=== PATIENT | female | born 1985 | race Caucasian/White ===

== ENCOUNTER 2016-10-17 19:14 | Emergency (ER) | payer OTHER ==
[2016-10-17 19:36] VITALS: BP 125/96; PULSE 80; TEMP 98.8; O2SAT 100
--- NOTE | 2016-10-17 20:11 | UCPHY ---
H & P Time Seen by Provider: 10/17/16 20:04 Patient Type: New HPI/ROS: This patient has cat bite to the left anterior arm and scratches to her left lateral torso. The his injuries were from her own cat who was startled by another CAT the window and then startled by the patient and the feline lunged at her. She reports mild pain from the bite and scratches. She clean with warm soapy water prior to arrival. 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 No other injuries. Cat's immunizations up-to-date. 5 point ROS is otherwise negative. Smoking Status: Never smoked Physical Exam: Physical Exam Vital signs are normal. General: No acute distress HEENT: Atraumatic. Eyes: Pupils equal and react to light. Extraocular motions are intact. Lungs: No respiratory distress. Cardiac: Brisk capillary refill is intact throughout. Pulses are 2+ and symmetric in the affected extremity. Skin: No rash or pallor. Patient has superficial lacerations to the left arm consistent with cat bite with no active bleeding no evidence of foreign bodies- base of the wound very clearly visualized. No gross cosmetic deformity. She also superficial abrasions to cat scratch the left lateral torso. No surrounding erythema or discharge. Neuro: Alert with no sensorimotor deficits. Constitutional: Initial Vital Signs Temperature (C) 37.1 C 10/17/16 19:34 Heart Rate 80 10/17/16 19:34 Blood Pressure 125/96 H 10/17/16 19:34 O2 Sat (%) 100 10/17/16 19:34 O2 Delivery Mode Room Air Allergies/Adverse Reactions: Penicillins Allergy (Verified 10/17/16 19:33) Home Medications: Medication Instructions Recorded Adderall 20 mg (*) 10/17/16 Amox Tr/K Clav (Augmentin) 500 mg PO TID #21 tab 10/17/16 [Augmentin 500/125 MG TAB (*)] MDM/Departure - [facility] ED Course/Re-evaluation: Wound care-wounds clean. Bandage applied to bite. I counseled her regarding Augmentin prophylaxis. - Depart Disposition: Home, Routine, Self-Care Clinical Impression: Cat bite involving extremity Condition: Fair Instructions: Animal Bite (ED) Additional Instructions: Diagnosis: Cat bite to arm and scratches to torso Plan: Clean wounds daily with warm soapy water Augmentin antibiotic if he started having redness or discharge. Ibuprofen and Tylenol for discomfort as needed. Return for any significant worsening despite the treatment plan. Prescriptions: Amox Tr/K Clav (Augmentin) [Augmentin 500/125 MG TAB (*)] 500 mg PO TID #21 tab [place]errals: [place],. [Primary Care Provider] - As per Instructions - PQRS PQRS Measurement: NA
== END 2016-10-17 20:29 | disposition home or self-care (01) ==
LOC: CED 19:14
DX: S41.152A Open bite of left upper arm, initial encounter (principal); S30.811A Abrasion of abdominal wall, initial encounter; W55.01XA Bitten by cat, initial encounter; W55.03XA Scratched by cat, initial encounter
CPT/HCPCS: G0463-PO

== ENCOUNTER → 2016-11-30 | Outpatient (CLI) | payer OTHER | LOC: BMCIMAGING 09:44 | PROVIDERS: ATTEND Emergency Medicine | DX: S49.92XA Unspecified injury of left shoulder and upper arm, initial encounter (principal) ==